=== PATIENT | female | born 1945 | race African-American/Black ===

== ENCOUNTER → 2016-06-17 | Outpatient (CLI) | payer BC ==
[2016-06-17 17:28] LABS: BASOPHILS % 1.3 % (0.0-2.0); EOSINOPHILS % 8.5 % (0.0-5.0); HEMOGLOBIN. 11.3 g/dL (12.0-16.0); LYMPHOCYTES % 36.3 % (20.0-50.0); MEAN CORPUSCULAR HEMOGLOBIN 28.7 pg (28.0-32.0); MEAN CORPUSCULAR HGB CONC 33.2 g/dL (31.0-37.0); MEAN CORPUSCULAR VOLUME 86.6 fL (81.0-99.0); MONOCYTES % 9.1 % (2.0-8.0); NEUTROPHILS % 44.8 % (40.0-76.0); PLATELET 231 x1000/uL (130-400); RED BLOOD CELL COUNT 3.93 mill/uL (4.2-5.4); RED CELL DISTRIBUTION WIDTH 13.3 % (11.6-14.6); WHITE BLOOD COUNT 6.9 x1000/uL (4.5-11.0)
[2016-06-17 17:48] LABS: ALANINE AMINOTRANSFERASE 23 IU/L (13-61); ALBUMIN 3.7 g/dL (3.4-5.0); ANION GAP 13; CALCIUM 9.1 mg/dL (8.5-10.1); CARBON DIOXIDE 28 mEq/L (21-32); CHLORIDE 99 mEq/L (98-107); HDL CHOLESTEROL 53 mg/dL (40-59); INDEX HEMOLYSI 1 (1-3); INDEX ICTERIC 1 (1-4); INDEX LIPEMIC 1 (1-3); IRON 49 ug/dL (50-175); LDL CHOLESTEROL 108 mg/dL (5-100); TOTAL IRON BINDING CAPACITY 299 ug/dL (250-450); TRIGLYCERIDE 194 mg/dL (0-150); UREA NITROGEN BLOOD 15 mg/dL (7-21); eGFR > 60 mL/min (>60)
[2016-06-17 18:37] LABS: FOLIC ACID (FOLATE) SERUM 17.5 ng/mL (>5.38)
[2016-06-19 08:13] LABS: *CREATININE RANDOM URINE 97.7 mg/dL (Not Estab.); MICROALBUMIN RANDOM URINE <3.0 ug/mL (Not Estab.); MICROALBUMIN/CREATININE RATIO <3.1 mg/g creat (0.0-30.0)
== END | disposition home or self-care (01) ==
LOC: LAB 16:40
PROVIDERS: ATTEND Internal Medicine Geriatric Medicine
DX: I10 Essential (primary) hypertension (principal); E11.8 Type 2 diabetes mellitus with unspecified complications
CPT/HCPCS: 36415; 80053; 80061; 82043; 82306; 82570; 82607; 82728; 82746; 83036; 83540; 83550; 84443; 85025; 86592

== ENCOUNTER → 2016-06-24 | Outpatient (CLI) | payer BC | END | disposition home or self-care (01) | LOC: MAMMO 08:53 | PROVIDERS: ATTEND Internal Medicine Geriatric Medicine | DX: Z12.31 Encounter for screening mammogram for malignant neoplasm of breast (principal); N64.4 Mastodynia | CPT/HCPCS: G0204 ==